=== PATIENT | female | born 1970 | race Caucasian/White ===

== ENCOUNTER → 2020-06-23 12:11 | Outpatient (BNVA) | payer BC, SELFPAY | PROVIDERS: Visit Provider Surgery ==

== ENCOUNTER → 2020-07-07 08:44 | Outpatient (BNVA) | payer BC, SELFPAY | PROVIDERS: Visit Provider Surgery ==

== ENCOUNTER → 2020-07-10 08:26 | Outpatient (BNVA) | payer BC, SELFPAY | PROVIDERS: Visit Provider Surgery ==

== ENCOUNTER → 2020-07-21 08:09 | Outpatient (BNVA) | payer BC, SELFPAY | PROVIDERS: Visit Provider Dietitian, Registered | DX: E66.01 Morbid (severe) obesity due to excess calories (principal) | CPT/HCPCS: 97802 ==

== ENCOUNTER 2020-07-26 07:11 | Day surgery (SDC) | payer BC, SELFPAY ==
[2020-07-13 13:35] VITALS: BMI 55.9
--- NOTE | 2020-07-25 09:01 | HO.ANESPROP2 ---
Documented by User: Feli Troy 07/25/20 09:04 HPI - Anesthesia Eval Consult details Narrative: 49yo F for Upper Endoscopy h/o gastric bypass PMFSH Active Problems Active Problems: All Active Problems (Updated 07/06/20 @ 10:56 by Jing Santana [facility]) Morbid obesity due to excess calories (Acute) BMI 50.0-59.9, adult (Acute) Bipolar I disorder with depression (Acute) Shortness of breath (Acute) Preoperative examination (Acute) Past Medical History Medical History Anxiety Arthritis of lumbar spine Chronic back pain Depression Fatty liver Graves disease Migraine headache Polycystic ovarian syndrome Spinal stenosis Family History Family History Mother Asthma Arthritis Spinal stenosis H/O thyroidectomy Father Heart attack Brother No problems noted. Brother No problems noted. Son No problems noted. Surgical History Surgical History History of esophagogastroduodenoscopy (EGD) Hx of colonoscopy Hx of gastric bypass Social History Social History Are you a primary career coach to a significant other at home: No Do you presently have visiting nurse or other home services: No Alcohol intake: former Are you DNR?: No Advance Directives: No Advance Directives Information Provided: No Advance Directives on File: No Recently lost weight without trying: No Eating poorly because of decreased appetite: No Nutrition Risks: No Nutritional Risk Meds Allergies Allergy/AdvReac Type Severity Reaction Status Date / Time sulfamethoxazole Allergy Severe Anaphylaxis Verified 07/26/20 07:18 [From Bactrim] trimethoprim [From Bactrim] Allergy Severe Anaphylaxis Verified 07/26/20 07:18 Home Medications Medication Instructions Recorded Confirmed Last Taken Type duloxetine 60 mg capsule,delayed 120 mg PO DAILY 06/23/20 07/13/20 Unknown History release ergocalciferol (vitamin D2) 1,250 1,250 mcg PO QWEEK 06/23/20 07/13/20 Unknown History mcg (50,000 unit) capsule fluticasone propionate 50 1 spray INTRANASAL DAILY PRN 06/23/20 07/13/20 Unknown History mcg/actuation nasal spray,suspension hydrocortisone 2.5 % topical cream appl TOPICAL BID PRN 06/23/20 07/10/20 Unknown History lamotrigine 25 mg tablet 50 mg PO DAILY 06/23/20 07/13/20 Unknown History levothyroxine 150 mcg tablet 150 mcg PO DAILY 06/23/20 07/13/20 Unknown History lorazepam 0.5 mg tablet 0.5 mg PO BID PRN 06/23/20 07/13/20 Unknown History magnesium 250 mg tablet 250 mg PO DAILY 06/23/20 07/13/20 Unknown History meclizine 12.5 mg tablet 12.5 mg PO TID PRN 06/23/20 07/13/20 Unknown History multivitamin 1 tab PO DAILY 06/23/20 07/13/20 Unknown History sumatriptan succinate 100 mg tablet 100 mg PO DIRECTED PRN 06/23/20 07/13/20 Unknown History topiramate 25 mg tablet 25 mg PO BID 06/23/20 07/13/20 Unknown History Exam Exam Date and Time: July 25, 2020 0901 Height,Weight and Vital Signs: Height 5 ft 6 in Weight 157.255 kg Assessment and Plan Assessment Anesthesia Assessment: Chart Reviewed Documented by User: Farrah Colon 07/26/20 07:47 [facility] Past Medical History Medical History Anxiety Arthritis of lumbar spine Chronic back pain Depression Fatty liver Graves disease Migraine headache Polycystic ovarian syndrome Spinal stenosis Family History Family History Mother Asthma Arthritis Spinal stenosis H/O thyroidectomy Father Heart attack Brother No problems noted. Brother No problems noted. Son No problems noted. Surgical History Surgical History History of esophagogastroduodenoscopy (EGD) Hx of colonoscopy Hx of gastric bypass Social History Social History Are you a primary career coach to a significant other at home: No Do you presently have visiting nurse or other home services: No Alcohol intake: former Are you DNR?: No Advance Directives: No Advance Directives Information Provided: No Advance Directives on File: No Recently lost weight without trying: No Eating poorly because of decreased appetite: No Nutrition Risks: No Nutritional Risk Meds Allergies Allergy/AdvReac Type Severity Reaction Status Date / Time sulfamethoxazole Allergy Severe Anaphylaxis Verified 07/26/20 07:18 [From Bactrim] trimethoprim [From Bactrim] Allergy Severe Anaphylaxis Verified 07/26/20 07:18 Home Medications Medication Instructions Recorded Confirmed Last Taken Type duloxetine 60 mg capsule,delayed 120 mg PO DAILY 06/23/20 07/13/20 Unknown History release ergocalciferol (vitamin D2) 1,250 1,250 mcg PO QWEEK 06/23/20 07/13/20 Unknown History mcg (50,000 unit) capsule fluticasone propionate 50 1 spray INTRANASAL DAILY PRN 06/23/20 07/13/20 Unknown History mcg/actuation nasal spray,suspension hydrocortisone 2.5 % topical cream appl TOPICAL BID PRN 06/23/20 07/10/20 Unknown History lamotrigine 25 mg tablet 50 mg PO DAILY 06/23/20 07/13/20 Unknown History levothyroxine 150 mcg tablet 150 mcg PO DAILY 06/23/20 07/13/20 Unknown History lorazepam 0.5 mg tablet 0.5 mg PO BID PRN 06/23/20 07/13/20 Unknown History magnesium 250 mg tablet 250 mg PO DAILY 06/23/20 07/13/20 Unknown History meclizine 12.5 mg tablet 12.5 mg PO TID PRN 06/23/20 07/13/20 Unknown History multivitamin 1 tab PO DAILY 06/23/20 07/13/20 Unknown History sumatriptan succinate 100 mg tablet 100 mg PO DIRECTED PRN 06/23/20 07/13/20 Unknown History topiramate 25 mg tablet 25 mg PO BID 06/23/20 07/13/20 Unknown History Exam Airway Mallampati Class: IV TM Dist: >3cm Neck ROM: Full
--- NOTE | 2020-07-25 11:12 | MHC.SHP ---
Pre-Procedural Eval Section B Chief Complaint: reflux Allergies: Allergies Allergy/AdvReac Type Severity Reaction Status Date / Time sulfamethoxazole Allergy Severe Anaphylaxis Verified 07/10/20 14:52 [From Bactrim] trimethoprim [From Bactrim] Allergy Severe Anaphylaxis Verified 07/10/20 14:52 Plan I have reviewed the history and physical and performed a pertinent physical examination on my patient. No changes have occurred unless specified.
[2020-07-26 07:22] VITALS: BP 148/76; PULSE 77; RESP 18; TEMP 36.3; O2SAT 95
[2020-07-26] MEDS: Lactated Ringers 1,000 ML 100 ML IVCONT (07:38)
[2020-07-26 07:43] LABS: COVID-19 Test Negative (Negative)
[2020-07-26 08:36] VITALS: BP 135/79; PULSE 74; RESP 14; TEMP 36.2; O2SAT 92
--- NOTE | 2020-07-26 08:42 | P.BOP_ITS ---
Brief Operative Note Date of Service: 07/26/20 Pre-op diagnosis: Weight gain After gastric bypass Post-op diagnosis: other (Gastric Pouch gastritis, normal gastric bypass) Procedure: Esophagogastrojejunostomy, enteroscopy to 90 cm from the incisors, gastric pouch biopsy Implants: None Surgeon: Lida Torres MD Anesthesia: MAC Was an Social Organization Professor used for this Procedure?: No Estimated blood loss (mL): 0 Pathology: other (Gastric pouch) Condition: stable Disposition: PACU
[2020-07-26 08:44] VITALS: PULSE 68; RESP 16; O2SAT 94
[2020-07-26 08:51] VITALS: BP 144/91; PULSE 70; RESP 18; O2SAT 95
[2020-07-26 09:06] VITALS: BP 132/70; PULSE 65; RESP 18; TEMP 36.2; O2SAT 98
--- NOTE | 2020-07-26 15:10 | OP_ITS ---
SURGEON: Lida Torres MD PREOPERATIVE DIAGNOSIS: POSTOPERATIVE DIAGNOSIS: PROCEDURE PERFORMED: ESTIMATED BLOOD LOSS: COMPLICATIONS: None. ANESTHESIA: ASSISTANTS: SPECIMENS: PRE-PROCEDURE DIAGNOSIS: Weight gain after gastric bypass. POSTPROCEDURE DIAGNOSIS: Gastric Pouch gastritis. PROCEDURES PERFORMED: 1. Esophagogastroduodenoscopy with enteroscopy to 90 cm from the incisors. 2. Biopsy of distal gastric pouch. FINDINGS: A [id number] size gastric pouch with a very large anastomotic opening and slight erythema of the distal gastric pouch. CONDITION: Postprocedure, good. DESCRIPTION OF PROCEDURE: The patient was brought into the operating room on a stretcher and placed in the left lateral decubitus position. A safety time-out was performed. A bite block was placed between the teeth. Total intravenous anesthesia was administered by the nurse fitness trainer. Once the patient was adequately sedated, the gastroscope was placed into posterior oropharynx and passed down the esophagus, evaluating the esophageal mucosa, which was normal. The GE junction was located at 43 cm from the incisors. The gastroscope was passed into the gastric pouch, which was [id number] size for its age. The anastomotic opening was very large and was located at 47 cm from the incisors. The gastroscope was easily passed into the Ben limb. The afferent portion of the Ben limb down to 90 cm from the incisors, all of which was normal. The gastroscope was retracted back into the stomach, and the portion of the stomach with erythema and granularity, which was distal gastric pouch, was biopsied x2 and sent for pathology. The gastroscope was used to desufflate the stomach, and the gastroscope was removed without difficulty. The patient tolerated the procedure well and was sent to the recovery room in stable condition. MD RORY Rankin/MODL / [id number] [email or web address]
== END 2020-07-26 09:30 | disposition home or self-care (01) ==
PROVIDERS: Visit Provider Surgery
PROC: 0DJ08ZZ Inspection of Upper Intestinal Tract, Via Natural or Artificial Opening Endoscopic (ICD-10-PCS; CPT 43235; principal; 2020-07-26 08:10)
DX: K21.9 Gastro-esophageal reflux disease without esophagitis (principal); K29.70 Gastritis, unspecified, without bleeding; R63.5 Abnormal weight gain; K76.0 Fatty (change of) liver, not elsewhere classified; E05.00 Thyrotoxicosis with diffuse goiter without thyrotoxic crisis or storm; Z98.84 Bariatric surgery status; Z20.822 Contact with and (suspected) exposure to COVID-19
CPT/HCPCS: 43239; 36415; 87635; 88305; 88342; J2250

== ENCOUNTER → 2020-08-11 08:14 | Outpatient (BNVA) | payer BC, SELFPAY | PROVIDERS: Visit Provider Dietitian, Registered ==

== ENCOUNTER → 2022-06-28 10:01 | Outpatient (BNVA) | payer MEDICAID, SELFPAY | PROVIDERS: Visit Provider Nurse Practitioner Family | DX: M54.16 Radiculopathy, lumbar region (principal); M96.1 Postlaminectomy syndrome, not elsewhere classified; M47.816 Spondylosis without myelopathy or radiculopathy, lumbar region; M51.36 Other intervertebral disc degeneration, lumbar region; M54.9 Dorsalgia, unspecified; G89.29 Other chronic pain; M62.830 Muscle spasm of back | CPT/HCPCS: 99202 ==